=== PATIENT | male | born 1940 | race Caucasian/White ===

== ENCOUNTER 2019-11-09 14:31 | Emergency (ER) | payer OTHER ==
[~2019-11-09] VITALS: Ht 160 cm; Wt 81.6 kg
[2019-11-09] MEDS ORDERED: LISINOPRIL20 MG (14:39)
[2019-11-09] MEDS ORDERED: ADALAT CC30 MG (14:39)
[2019-11-09] MEDS ORDERED: [UNRECOGNIZED DRUG - OTHER] (14:41)
[2019-11-09] MEDS ORDERED: CLIPIZIDE (14:41)
[2019-11-09] MEDS ORDERED: OMEGA-31000 MG (14:42)
[2019-11-09] MEDS ORDERED: ZOCOR20 MG (14:42)
[2019-11-09] MEDS ORDERED: METFORMIN HCL500 MG (14:42)
[2019-11-09] MEDS ORDERED: ASPIR 8181 MG (14:43)
== END 2019-11-09 16:44 | disposition home or self-care (01) ==
LOC: ER 14:31
DX: S80.01XS Contusion of right knee, sequela (principal); R60.0 Localized edema; W18.39XS Other fall on same level, sequela

== ENCOUNTER 2019-11-27 10:01 | Outpatient (CLI) | payer OTHER ==
[~2019-11-27 10:01] MED LIST: ADALAT CC30 MG; ASPIR 8181 MG; CLIPIZIDE; LISINOPRIL20 MG; METFORMIN HCL500 MG; OMEGA-31000 MG; ZOCOR20 MG; [UNRECOGNIZED DRUG - OTHER]
== END 2019-11-27 10:06 | disposition home or self-care (01) ==
LOC: MRI 10:01
DX: S80.911A Unspecified superficial injury of right knee, initial encounter (principal)
CPT/HCPCS: 73721